=== PATIENT | male | born 1950 | race Caucasian/White ===

== ENCOUNTER 2021-03-30 12:00 | Outpatient (CLI) | payer MEDICARE, MEDICAID ==
[~2021-03-30 12:00] MED LIST: ATOR10TA PO; CARV3.12 PO; CARV3.122 PO; CLOP75TA15 PO; ESCI10TA PO; LISI-768 PO; METO2.5T2 PO; METO25TA4 PO; NITR12SP6 TL; PANT40TA2 PO; SEVE800T8 PO; SUB--70 MC; ZOLP5TAB8 PO
== END 2021-03-30 23:59 | disposition home or self-care (01) ==
LOC: MSC 12:00
PROVIDERS: ATTEND Internal Medicine
DX: E11.65 Type 2 diabetes mellitus with hyperglycemia (principal); E11.40 Type 2 diabetes mellitus with diabetic neuropathy, unspecified; Z79.4 Long term (current) use of insulin; Z94.0 Kidney transplant status; Z94.1 Heart transplant status; I10 Essential (primary) hypertension; E78.5 Hyperlipidemia, unspecified; G47.00 Insomnia, unspecified; I25.10 Atherosclerotic heart disease of native coronary artery without angina pectoris; I73.9 Peripheral vascular disease, unspecified; Z79.01 Long term (current) use of anticoagulants; Z79.52 Long term (current) use of systemic steroids; Z79.899 Other long term (current) drug therapy; Z87.891 Personal history of nicotine dependence

== ENCOUNTER 2025-09-21 23:22 | Inpatient (IN) | payer MEDICARE, OTHER ==
[~2025-09-21] VITALS: Ht 172.7 cm; Wt 94.1 kg
[2025-09-22] MEDS ORDERED: ACETAMINOPHEN 650 MG/SUPP.RECT RC ONE (00:35)
[2025-09-22] MEDS: IV NS 0.9% 500 ML BAG IV ONE ×3 (00:35→03:00)
[2025-09-22] MEDS ORDERED: PIPERACI/TAZO 3.375GM/D5W 50ML PB IV ONE (00:35)
[2025-09-22] MEDS ORDERED: VANCOMYCIN 1 GM /D5W 250 ML PB IV ONE (00:35)
[2025-09-22] MEDS: PIPERACILLIN /TAZOBACTAM 3.375 G in IV D5W 50 ML IV ONE (00:36)
[2025-09-22] MEDS: ACETAMINOPHEN 650 MG/SUPP.RECT RC ONE (00:36)
[2025-09-22 00:48] LABS: PLATELET COUNT (AUTO) 245 K/uL (150-450); RED BLOOD CELL COUNT(AUTO) 5.68 MIL/uL (4.5-6.0); RED CELL DISTRIBUTION WIDTH 16.0 % (11.5-15.0); WHITE BLOOD COUNT (AUTO) 14.8 K/uL (4.3-11.0)
[2025-09-22 00:57] LABS: CALCIUM, SERUM 9.4 mg/dL (8.5-10.1); CREATININE 2.3 mg/dL (0.6-1.3); SODIUM SERUM 136 mmol/L (136-145); UREA NITROGEN, BLOOD 62 mg/dL (7-18)
--- NOTE | 2025-09-22 00:57 | NUR ---
URINE SAMPLE SENT TO LAB
--- NOTE | 2025-09-22 00:57 | NUR ---
COVID & FLU SWABS SENT TO LAB
[2025-09-22 01:04] LABS: INR 1.09 (0.91-1.10)
[2025-09-22 01:09] LABS: LACTIC ACID 2.0 mmol/L (0.4-2.0)
[2025-09-22] MEDS: VANCOMYCIN 1 GM in IV D5W 250 ML IV ONE (01:12)
[2025-09-22 01:18] LABS: ASPARTATE AMINOTRANSFERASE 13 U/L (15-37); TOTAL PROTEIN, SERUM 7.9 g/dL (6.4-8.2)
--- NOTE | 2025-09-22 01:18 | NUR ---
pt taken to ct
--- NOTE | 2025-09-22 01:30 | NUR ---
pt back from ct
[2025-09-22 01:37] LABS: APPEARANCE,URINE CLOUDY (CLEAR); BLOOD, URINE 1+ Ery/uL (NEGATIVE); LEUKOCYTE ESTERASE ,URINE 3+ (NEGATIVE); NITRITE, URINE NEGATIVE (NEGATIVE); UGLUCOSE NEGATIVE (NEGATIVE)
[2025-09-22 01:50] LABS: ADD URINE CULTURE YES; SQUAMOUS EPITHELIAL CELL,UR 0-2 /HPF (None Seen)
[2025-09-22] MEDS ORDERED: ENOXAPARIN SODIUM 40 MG/0.4 ML DISP.SYRIN SQ SCH (04:00)
[2025-09-22] MEDS ORDERED: ACETAMINOPHEN 325 MG TABLET PO PRN (04:00)
[2025-09-22] MEDS ORDERED: ACETAMINOPHEN 650 MG/SUPP.RECT RC PRN (04:00)
[2025-09-22] MEDS ORDERED: MAGNESIUM HYDROXIDE 30 ML UDC PO PRN (04:00)
[2025-09-22] MEDS ORDERED: DOSING PER PHARMACY-ZOSYN IV 1 EA EA XX PRN (04:00)
[2025-09-22] MEDS ORDERED: DOSING PER PHARMACY-VANCOMYCIN IV XX PRN (04:00)
[2025-09-22] MEDS ORDERED: MAG HYDROX/AL HYDROX/SIMETH 30 ML UDC PO PRN (04:00)
[2025-09-22 06:39] LABS: PLATELET COUNT (AUTO) 177 K/uL (150-450); RED BLOOD CELL COUNT(AUTO) 5.51 MIL/uL (4.5-6.0); RED CELL DISTRIBUTION WIDTH 16.4 % (11.5-15.0); WHITE BLOOD COUNT (AUTO) 11.9 K/uL (4.3-11.0)
[2025-09-22 07:03] LABS: ASPARTATE AMINOTRANSFERASE 13.0 U/L (15-37); CALCIUM, SERUM 9.4 mg/dL (8.5-10.1); CREATININE 2.0 mg/dL (0.6-1.3); PHOSPHORUS 3.5 mg/dL (2.5-4.9); SODIUM SERUM 138.0 mmol/L (136-145); TOTAL PROTEIN, SERUM 7.4 g/dL (6.4-8.2); UREA NITROGEN, BLOOD 57.0 mg/dL (7-18)
--- NOTE | 2025-09-22 07:07 | NUR ---
mrsa swab collected and sent to lab
--- NOTE | 2025-09-22 07:15 | NUR ---
RECEIVED PATIENT ON BED , CONNECTED TO CARDIAC, PULSE OX AND N/C 5L/MIN O2. AWAKE ALERT CONFUSED AND RESTING COMFORTABLY. NO SIGNS AND SYMPTOMS OF DISTRESS. FOLLEY CATHETER NOTED.
--- NOTE | 2025-09-22 07:30 | NUR ---
[id number], ER ADMITTING AWARE
--- NOTE | 2025-09-22 07:30 | NUR ---
Patricia newby in ED - 09/22/25 at 0730 by NMOLMITRA [id number], ER admitting aware
--- NOTE | 2025-09-22 07:42 | NUR ---
REPORT GIVEN TO LESTER BARAJAS
--- NOTE | 2025-09-22 08:16 | NUR ---
MOVED TO INPATIENT ROOM SAFELY PER ACLS PROTOCOL
--- NOTE | 2025-09-22 08:37 | NUR ---
BILLET ASSEMBLER NOTES ADMITTED PATIENT TO UNIT IN STABLE CONDITION.PT IS A/O X 2, WITH O2 INHALATION AT 5LPM VIA NC,SATURATING AT 95%.NO SIGNS OR SYMPTOMS OF RESPIRATORY DISTRESS NOTED.PATIENT ORIENTED TO ROOM, STAFF AND CALL LIGHT.ON INVENTORY CONTROLLER WITH READING OF SINUS TACHYCARDIA 110.WITH IV ACCESS AT RIGHT HAND G#20 INTACT,PATENT WITH INFUSING NS AT 50ML/HR.SKIN ASSESSMENT DONE, WITH SCABS AT LEFT LEG.NO EDEMA PRESENT,BOWEL SOUNDS ACTIVE.BELONGINGS ACCOUNTED BY GINA CUMMINGS.SAFETY MEASURES IN PLACED; BED IN LOWEST AND LOCKED POSITION, SIDE RAILS UP X3.CALL LIGHT AND TRAY TABLE WITHIN EASY REACH.PLAN OF CARE ONGOING.
[2025-09-22] MEDS: VANCOMYCIN 750 MG in IV D5W 250 ML IV ONE (08:49)
[2025-09-22] MEDS: IV NS 0.9% 1,000 ML IV PRN (08:50)
[2025-09-22] MEDS: PANTOPRAZOLE 40 MG VIAL IV SCH (09:17)
[2025-09-22] MEDS: ENOXAPARIN SODIUM 30 MG/0.3 ML DISP.SYRIN SQ SCH (09:19)
[2025-09-22] MEDS: ZOSYN IVPB 2.25 G in IV D5W 50ml IV SCH (09:54)
[2025-09-22] MEDS ORDERED: GABA300C PO (15:38)
[2025-09-22] MEDS ORDERED: QUET25TA PO (15:38)
[2025-09-22] MEDS ORDERED: FOLI0.8T43 PO (15:38)
[2025-09-22] MEDS ORDERED: IPRA12.9 INH (15:38)
[2025-09-22] MEDS ORDERED: INSU100V39 SQ (15:38)
[2025-09-22] MEDS ORDERED: TRAZ-182 PO (15:38)
[2025-09-22] MEDS ORDERED: PRAV20TA4 PO (15:38)
[2025-09-22] MEDS ORDERED: ASPI-1169 PO (15:38)
[2025-09-22] MEDS ORDERED: PANT40TA49 PO (15:38)
[2025-09-22] MEDS ORDERED: MAGN400T8 PO (15:38)
[2025-09-22] MEDS ORDERED: MECL-159 PO (15:38)
[2025-09-22] MEDS ORDERED: MIRABEGRON PO (15:38)
[2025-09-22] MEDS ORDERED: INSU300I SQ (15:38)
[2025-09-22] MEDS ORDERED: CYAN10006 IM (15:38)
[2025-09-22] MEDS ORDERED: NATE120T6 PO (15:38)
[2025-09-22] MEDS ORDERED: MECL-182 PO (15:38)
[2025-09-22] MEDS ORDERED: TACR1CAP2 PO (15:38)
[2025-09-22] MEDS ORDERED: ICOS1CAP PO (15:38)
[2025-09-22] MEDS ORDERED: PRED5TAB48 PO (15:38)
[2025-09-22] MEDS ORDERED: TAMS-12 PO (15:38)
[2025-09-22] MEDS ORDERED: ASCO500T21 PO (15:38)
[2025-09-22] MEDS ORDERED: FURO-144 PO (15:38)
[2025-09-22] MEDS ORDERED: VITA-354 PO (15:38)
[2025-09-22] MEDS ORDERED: PHEN-894 PO (15:38)
[2025-09-22] MEDS ORDERED: LINA5TAB PO (15:38)
[2025-09-22] MEDS ORDERED: AMYL1CAP58 PO (15:38)
[2025-09-22] MEDS ORDERED: VALS160T2 PO (15:38)
[2025-09-22] MEDS ORDERED: SENN8.6T19 PO (15:38)
[2025-09-22] MEDS ORDERED: DOCU100C36 PO (15:38)
[2025-09-22] MEDS ORDERED: THIA100T88 PO (15:38)
[2025-09-22] MEDS ORDERED: LIDO1ADH82 TP (15:38)
[2025-09-22] MEDS ORDERED: MYCO250C PO (15:38)
[2025-09-22] MEDS ORDERED: CALC-1276 PO (15:38)
[2025-09-22] MEDS ORDERED: ACET325T53 PO (15:38)
[2025-09-22] MEDS ORDERED: AMLO-212 PO (15:38)
[2025-09-22] MEDS ORDERED: TROS20TA3 PO (15:38)
--- NOTE | 2025-09-22 15:38 | NUR ---
MED RECON NOTES Alla (son) brought medications list and called Glendy (daughter) to confirm if the list are the mediations that he is taking currently and she stated yes. Medication reconciliation updated and Dr. Martines made aware.
[2025-09-22] MEDS ORDERED: SENNOSIDES 8.6 MG TABLET PO PRN (16:00)
[2025-09-22] MEDS ORDERED: LIDOCAINE 4% PF AMPUL 40 MG/ML AMPUL TP SCH (16:00)
[2025-09-22] MEDS ORDERED: AMLODIPINE BESYLATE 5 MG TABLET PO SCH (16:00)
[2025-09-22] MEDS: ASCORBIC ACID 500 MG TABLET PO SCH (16:36)
[2025-09-22] MEDS: MYCOPHENOLATE MOFETIL 250 MG CAPSULE PO SCH (16:36)
[2025-09-22] MEDS: GABAPENTIN 300 MG CAPSULE PO SCH (16:37)
[2025-09-22] MEDS: DOCUSATE SODIUM 100 MG CAPSULE PO SCH (16:37)
--- NOTE | 2025-09-22 18:10 | NUR ---
RN NOTES BP OF 145/90 NOTED AT THIS TIME
--- NOTE | 2025-09-22 18:48 | NUR ---
RN CLOSING NOTES PATIENT RESTING IN BED.PT IS A/O X 2, WITH O2 INHALATION AT 5LPM VIA NC,SATURATING AT 95%.NO SIGNS OR SYMPTOMS OF RESPIRATORY DISTRESS NOTED.ON MANAGER PROCESS EXCELLENCE WITH READING OF SINUS TACHYCARDIA 105.WITH IV ACCESS AT RIGHT HAND G#20 INTACT,PATENT WITH INFUSING NS AT 50ML/HR.SAFETY MEASURES IN PLACED; BED IN LOWEST AND LOCKED POSITION, SIDE RAILS UP X3.CALL LIGHT AND TRAY TABLE WITHIN EASY REACH.PLAN OF CARE ONGOING.
--- NOTE | 2025-09-22 19:45 | NUR ---
DIRECTOR OF ONCOLOGY OPENING NOTES PATIENT AWAKE, RESTING COMFORTABLY ON BED AND ON SEMI FOWLERS POSITION. ALERT BUT DISORIENTED. UNABLE TO CORRECTLY ANSWER HIS NAME,PLACE, TIME AND PURPOSE. ON OXYGEN AT 4 LPM SATURATING WELL WITH SPO2 OF 99% AND WITH EVEN AND NONLABORED BREATHING. NOTED TO BE A MOUTH BREATHER. NO CARDIAC OR RESPIRATORY DISTRESS NOTED AT THIS TIME. NO NONVERBAL OR VERBAL CUES OF PAIN NOTED. ON CONTINUOUS TELEMETRY MONITORING WITH CURRENT READING OF SINUS TACHYCARDIA AT 121 BPM. WITH IV ACCESS ON HIS LEFT HAND GAUGE # 20 PATENT, INTACT AND INFUSING NS AT 50 ML/HR WELL. ON BED REST. WITH MYERS CATHETER DRAINING URINE VIA GRAVITY AND URINE BAG PLACED BELOW THE BLADDER. ALL FALL AND SAFETY MEASURES IMPLEMENTED: BED IN LOWEST AND LOCKED POSITION, BED ALARM ON, SIDE RAILS X 3, CALL LIGHT AND TABLE PLACED WITHIN PATIENT'S REACH. NO FURTHER NEEDS NOTED AT THIS TIME.
[2025-09-22 20:00] VITALS: BP 130/76; TEMP 97.9; O2SAT 99
[2025-09-22] MEDS: TACROLIMUS ANHYDROUS 0.5 MG CAPSULE PO SCH (20:58)
[2025-09-22] MEDS: PANTOPRAZOLE 40 MG TABLET.DR PO SCH (21:26)
[2025-09-22] MEDS: TAMSULOSIN 0.4 MG CAP.SR.24H PO SCH (21:27)
[2025-09-22] MEDS: TRAZODONE 50 MG TABLET PO SCH (21:27)
[2025-09-22] MEDS: ATORVASTATIN 10 MG TABLET PO SCH (21:27)
[2025-09-22] MEDS: QUETIAPINE FUMARATE 25 MG TABLET PO SCH (21:27)
[2025-09-22] MEDS: INSULIN GLARGINE, 100 UNIT/ML CARTRIDGE SQ SCH (22:02)
[2025-09-23] VITALS (7 sets, daily range): BP systolic 111–131; BP diastolic 60–79; TEMP 97.3–99; O2SAT 93–98
[2025-09-23 06:02] LABS: PLATELET COUNT (AUTO) 233 K/uL (150-450); RED BLOOD CELL COUNT(AUTO) 5.21 MIL/uL (4.5-6.0); RED CELL DISTRIBUTION WIDTH 16.5 % (11.5-15.0); WHITE BLOOD COUNT (AUTO) 10.6 K/uL (4.3-11.0)
[2025-09-23 06:21] LABS: ASPARTATE AMINOTRANSFERASE 6 U/L (15-37); CALCIUM, SERUM 8.8 mg/dL (8.5-10.1); CREATININE 1.7 mg/dL (0.6-1.3); PHOSPHORUS 3.0 mg/dL (2.5-4.9); SODIUM SERUM 139 mmol/L (136-145); TOTAL PROTEIN, SERUM 6.8 g/dL (6.4-8.2); UREA NITROGEN, BLOOD 47 mg/dL (7-18)
[2025-09-23 06:25] LABS: CREATINE KINASE, TOTAL 42 U/L (39-308)
--- NOTE | 2025-09-23 06:53 | NUR ---
SCHOOL BUS AIDE CLOSING NOTES PATIENT ASLEEP BUT EASILY AWAKENED, RESTING COMFORTABLY ON BED AND ON SEMI FOWLERS POSITION. STILL ALERT BUT DISORIENTED. STILL ON OXYGEN AT 3 LPM SATURATING WELL WITH SPO2 OF 94% AND WITH EVEN AND NONLABORED BREATHING. NO CARDIAC OR RESPIRATORY DISTRESS NOTED WITHIN THE SHIFT. NO NONVERBAL OR VERBAL CUES OF PAIN NOTED. STILL ON CONTINUOUS TELEMETRY MONITORING WITH CURRENT READING OF SINUS TACHYCARDIA AT 112 BPM. STILL WITH IV ACCESS ON HIS LEFT HAND GAUGE # 20 PATENT, INTACT AND INFUSING NS AT 50 ML/HR WELL. ON BED REST. WITH MYERS CATHETER DRAINING CLOUDY AND YELLOW URINE. URINE BAG EMPTIED AND RECORDED. KEPT SAFE AND COMFORTABLE. ALL NURSING NEEDS AND CONCERNS ATTENDED. ALL FALL AND SAFETY MEASURES MAINTAINED: BED STILL IN LOWEST AND LOCKED POSITION, BED ALARM ON, SIDE RAILS X 3, CALL LIGHT AND TABLE PLACED WITHIN PATIENT'S REACH. WILL ENDORSE TO MORNING SHIFT RN FOR CONTINUITY OF CARE.
[2025-09-23] MEDS: LIDOCAINE 5% (PATCH) 1 EA PATCH TP SCH (08:46)
[2025-09-23] MEDS: FUROSEMIDE 40 MG TABLET PO SCH (08:46)
[2025-09-23] MEDS: THIAMINE HCL 100 MG TABLET PO SCH (08:46)
[2025-09-23] MEDS: ASPIRIN 81 MG TAB.CHEW PO SCH (08:47)
[2025-09-23] MEDS: LINAGLIPTIN 5 MG TABLET PO SCH (08:47)
[2025-09-23] MEDS: MECLIZINE HCL 25 MG TABLET PO SCH (08:47)
[2025-09-23] MEDS ORDERED: VALSARTAN 40 MG TABLET PO SCH (09:00)
[2025-09-23] MEDS: VANCOMYCIN 750 MG in IV D5W 250 ML IV SCH (10:03)
--- NOTE | 2025-09-23 12:05 | NUR ---
BROADCAST OPERATIONS DIRECTOR OPENING NOTE : RECEIVED PT IN BED IN SEMI-FOWLERS POSITION. ON 4 LITER OXYGEN VIA NC, BREATHING EVEN AND UNLABORED, NO INDICATION OF ACUTE RESPIRATORY DISTRESS NOTED. CONTINUE ON TELE MONITORING SR 100 BPM. PT IS AOX0, UNABLE TO COMPREHEND AND VERBALIZED NEEDS. IV SITE ON L HAND @20G, RUNNING NS 50CC/HR, LINE IS PATENT AND FLUSH WELL VOIDING VIA MYERS. COLOR IS ORANGE AND CLOUDY. BB AND UNABLE TO MOVE AND AMBULATE, AND NEEDS TOTAL ASSIST. ALL FALL AND SAFETY PRECAUTION IN PLACE.
[2025-09-23] MEDS ORDERED: DEXTROSE 50%-WATER 50 ML DISP.SYRIN IV PRN (19:00)
--- NOTE | 2025-09-23 19:24 | NUR ---
MANAGER BRIDGE CLOSING NOTE : PT IN BED IN . ON 4 LITER OXYGEN VIA NC, BREATHING EVEN AND UNLABORED, NO INDICATION OF ACUTE RESPIRATORY DISTRESS NOTED. CONTINUE ON TELE MONITORING SR 98 BPM. RECEIVED ALL DUE MEDS. PT IS AOX1, UNABLE TO COMPREHEND AND VERBALIZED NEEDS. IV SITE ON L HAND @20G, RUNNING NS 50CC/HR, LINE IS PATENT AND FLUSH WELL VOIDING VIA MYERS WITH 500 CC OUTPUT. NO BM. BB AND UNABLE TO MOVE AND AMBULATE, AND NEEDS TOTAL ASSIST. XR ON LEFT SHOULDER WITH NEGATIVE RESULT. ALL FALL AND SAFETY PRECAUTION IN PLACE.
--- NOTE | 2025-09-23 19:26 | NUR ---
MS RN CLOSING NOTE : PT IN BED IN . ON RA, BREATHING EVEN AND UNLABORED, NO INDICATION OF ACUTE RESPIRATORY DISTRESS NOTED. . PT IS AOX0, UNABLE TO COMPREHEND AND VERBALIZED NEEDS. IN CONTACT ISOLATION DUE TO LICE . IV SITE ON RAC @22G, RUNNING NS 75CC/HR, LINE IS PATENT AND FLUSH WELL VOIDING VIA MYERS WITH 500 CC OUTPUT. NO BM. BB AND UNABLE TO MOVE AND AMBULATE, AND NEEDS TOTAL ASSIST. ALL FALL AND SAFETY PRECAUTION IN PLACE.
--- NOTE | 2025-09-23 19:42 | NUR ---
FINAL COAT SPRAYER OPENING NOTES PATIENT AWAKE, RESTING COMFORTABLY ON BED AND ON SEMI FOWLERS POSITION. ALERT AND ORIENTED X 3, ABLE TO MAKE NEEDS KNOWN, [place] SPEAKER AND ABLE TO UNDERSTAND SOME ROMANIAN. MORE ORIENTED THAN LAST NIGHT. ON OXYGEN AT 3 LPM SATURATING WELL WITH SPO2 OF 98% AND WITH EVEN AND NONLABORED BREATHING. NO CARDIAC OR RESPIRATORY DISTRESS NOTED AT THIS TIME. NO NONVERBAL OR VERBAL CUES OF PAIN NOTED. ON CONTINUOUS TELEMETRY MONITORING WITH CURRENT READING OF SINUS RHYTHM AT 98 BPM. WITH IV ACCESS ON HIS LEFT HAND GAUGE # 20 PATENT, INTACT AND INFUSING NS AT 50 ML/HR WELL. ON BED REST. WITH MYERS CATHETER DRAINING URINE VIA GRAVITY AND URINE BAG PLACED BELOW THE BLADDER. ALL FALL AND SAFETY MEASURES IMPLEMENTED: BED IN LOWEST AND LOCKED POSITION, BED ALARM ON, SIDE RAILS X 3, CALL LIGHT AND TABLE PLACED WITHIN PATIENT'S REACH. NO FURTHER NEEDS NOTED AT THIS TIME.
[2025-09-23] MEDS: BLOOD SUGAR DIAGNOSTIC 1 EACH STRIP VI SCH (20:05)
[2025-09-23] MEDS: INSULIN REGULAR, HUMAN 100 UNIT/ML 3 ML VIAL SQ PRN (20:08)
--- NOTE | 2025-09-23 21:00 | NUR ---
BROOMCORN PRESS FEEDER NOTES TURNED AND REPOSITIONED PATIENT WITH HELP OF GINA ROBLES. INCIDENTALLY FOUND REDNESS ON PATIENT'S BILATERAL HEELS, BACK, BUTTOCKS AND SACRUM. PHOTO OF SKIN ISSUES TAKEN AND PLACED IN THE CHART. APPLIED OPTIFOAM ON PATIENT'S HEELS AND SACRAL AREA. CHARGE NURSE MADE AWARE.
--- NOTE | 2025-09-23 22:00 | NUR ---
MUSICAL STRING MAKER NOTES UPON ROUNDS, NOTICED PATIENT'S IV ACCESS TO BE INFILTRATED. STOPPED IVF AND REMOVED IV CANNULA. TRIED IV INSERTION TWICE BUT FAILED. ASKED MARINE DIVER FOR HELP WITH IV INSERTION.
[2025-09-23] MEDS: *INSULIN REGULAR(HUMULIN R)HUM 100 UNIT/ML VIAL SQ PRN (22:20)
--- NOTE | 2025-09-23 23:00 | NUR ---
BELL CLERK NOTES DECREASE OXYGEN FROM 3 LPM TO 2 LPM WITH SPO2 AT 98-99%.
[2025-09-24] VITALS (8 sets, daily range): BP systolic 100–133; BP diastolic 49–84; TEMP 97.3–98.2; O2SAT 96–100
--- NOTE | 2025-09-24 00:54 | NUR ---
FINE ARTS CHAIR NOTES CERTIFIED PERFORMANCE TECHNOLOGIST NEPTALI WAS ABLE TO SUCCESSFULLY INSERT IV CATHETER 22 GAUGE ON PATIENT'S LEFT FOOT. PATIENT HARD STICK AND MIDLINE INSERTION ORDERED. INFORMED CHARGE NURSE AND NURSING IMAGER CONRADO REGARDING MIDLINE INSERTION FOR PATIENT.
--- NOTE | 2025-09-24 05:49 | NUR ---
HAND BINDER CUTTER NOTES CLEANED PATIENT WITH HELP OF GINA ROBLES. BED LINENS CHANGED AND REPOSITIONED PATIENT ON BED. URINE BAG EMPTIED AND RECORDED.
[2025-09-24 07:08] LABS: PTH, INTACT 16 pg/mL (15-65)
--- NOTE | 2025-09-24 07:11 | NUR ---
WOUND CARE CONSULT: PT HAVING PROCEDURE. ADMISSION PHOTO INDICATES SACRAL DEEP TISSUE INJURY. DISCUSSED SKIN PROTECTION WITH NURSING STAFF. MD IN AGREEMENT WITH PLAN OF CARE.
--- NOTE | 2025-09-24 07:29 | NUR ---
DIESEL MECHANIC FARM CLOSING NOTES PATIENT ASLEEP BUT EASILY AWAKENED, RESTING COMFORTABLY ON BED AND ON SEMI FOWLERS POSITION. STILL ALERT AND ORIENTED X 2-3 AND WITH EPISODES OF CONFUSION. STILL ON OXYGEN AT 2 LPM SATURATING WELL WITH SPO2 OF 98% AND WITH EVEN AND NONLABORED BREATHING. NO CARDIAC OR RESPIRATORY DISTRESS NOTED WITHIN THE SHIFT. NO NONVERBAL OR VERBAL CUES OF PAIN NOTED. STILL ON CONTINUOUS TELEMETRY MONITORING WITH CURRENT READING OF SINUS RHYTHM WITH OCCASIONAL PVC'S WITH HEART RATE AT 99 BPM. STILL WITH IV ACCESS ON HIS LEFT FOOT GAUGE # 22 PATENT, INTACT AND FLUSHING WELL. ON BED REST. WITH MYERS CATHETER DRAINING CLOUDY AND YELLOW URINE. URINE BAG EMPTIED AND RECORDED. KEPT SAFE AND COMFORTABLE. ALL NURSING NEEDS AND CONCERNS ATTENDED. IV CANNULA 20 GAUGE SUCCESSFULLY INSERTED BY VASCULAR NURSE DONYA ON HIS LEFT FOREARM. ALL FALL AND SAFETY MEASURES MAINTAINED: BED STILL IN LOWEST AND LOCKED POSITION, BED ALARM ON, SIDE RAILS X 3, CALL LIGHT AND TABLE PLACED WITHIN PATIENT'S REACH. REPORT GIVEN TO KARL MONTIEL FOR CONTINUITY OF CARE. INFORMED KARL MONTIEL THAT SHE NEEDS TO REMOVE THE IV CANNULA ON PATIENT'S LEFT FOOT SINCE PATIENT ALREADY HAVE IV ACCESS ON HIS LEFT FOREARM.
--- NOTE | 2025-09-24 07:50 | NUR ---
RN OPENING NOTES RECEIVED PATIENT AWAKE IN BED. ON 2L O2 VIA NC. IV ACCESS ON LFA #20G WITH IVF OF NS @ 50 ML/HR. SAFETY MEASURES IN PLACE. WILL CONTINUE TO MONITOR.
[2025-09-24 08:01] LABS: CALCIUM, SERUM 8.8 mg/dL (8.5-10.1); CREATININE 1.6 mg/dL (0.6-1.3); SODIUM SERUM 141.0 mmol/L (136-145); UREA NITROGEN, BLOOD 38.0 mg/dL (7-18)
[2025-09-24] MEDS: POTASSIUM CHLORIDE 20 MEQ TAB.PRT.SR PO ONE (09:41)
--- NOTE | 2025-09-24 18:48 | NUR ---
RN CLOSING NOTES PATIENT RESTING IN BED, WITH FAMILY ON BEDSIDE. ON 2L O2 VIA NASAL CANNULA SATURATING WELL. IV ACCESS ON LFA #20G WITH IVF OF NS @ 50 ML/HR. ALL DUE MEDS GIVEN AND NEEDS ATTENDED TO. SAFETY MEASURES MAINTAINED AT ALL TIMES. WILL ENDORSE PLAN OF CARE TO INCOMING RN.
--- NOTE | 2025-09-24 19:30 | NUR ---
RN OPENING NOTES RECEIVED PT IN BED, AWAKE, A/O X 2 ABLE TO MAKE NEEDS KNOWN, REORIENTATION GIVEN. PT N 2L O2 VIA NC, RESPIRATIONS EVEN AND UNLABORED. IV ACCESS AT LFA 20G, INFUSING WELL WITH NS @ 50ML/HR. ON MYERS TO GRAVITY, NOTED CLEAR YELLOW URINE OUTPUT. PT DENIES PAIN OR ANY DISTRESS AT THIS TIME. SAFETY PRECAUTIONS I PLACE: BED AT LOWEST AND LOCKED POSITION, SIDE RAILS UP X3, BED ALARM ON, CALL LIGHT BUTTON AND TABLE WITHIN REACH. PLAN OF CARE ONGOING
--- NOTE | 2025-09-25 07:09 | NUR ---
RN CLOSING NOTES PT IN BED , AWAKE, A/OX3 ABLE TO AMKE NEEDS KNOWN. REMAINED STABLE ON 2L O2 VIA NC, RESPIRATIONS EVEN AND UNLAORED. IV ACCESS INFUSING WELL WITH NS 50 ML/HR. ON MYERS WITH 80 Addendum: 09/25/25 at 0710 by EDYTA CRUZ RN DISREGARD NOTE - INCOMPLETE
--- NOTE | 2025-09-25 07:10 | NUR ---
RN CLOSING NOTES PT IN BED , AWAKE, A/OX3 ABLE TO MAKE NEEDS KNOWN. REMAINED STABLE ON 2L O2 VIA NC, RESPIRATIONS EVEN AND UNLABORED. IV ACCESS INFUSING WELL WITH NS 50 ML/HR. ON MYERS WITH 800 ML TOTAL URINE OUTPUT. ALL DUE MEDS GIVEN, ALL NEEDS ATTENDED.BLOOD SUGAR MONITORED AND MANAGED. KEPT PT CLEAN AND DRY. SAFETY PRECAUTIONS MAINTAINED. PT REMAINED STABLE THROUGHOUT SHIFT. ENDORSED TO AM NURSE FOR TREV
--- NOTE | 2025-09-25 07:30 | NUR ---
OPENING NOTES RECEIVED PATIENT IN BED, AWAKE, A/O X 2 ABLE TO MAKE NEEDS KNOWN. ON O2 AT 2 LPM VIA NC, RESPIRATIONS EVEN AND UNLABORED. IV ACCESS AT LFA 20G WITH NS @ 50ML/HR. ON MYERS DRAINING VIA GRAVITY, SAFETY PRECAUTIONS IN PLACE: BED AT LOWEST AND LOCKED POSITION, SIDE RAILS UP X3, BED ALARM ON, CALL LIGHT BUTTON AND TABLE WITHIN REACH. PLAN OF CARE ONGOING
[2025-09-25 07:37] LABS: PLATELET COUNT (AUTO) 213 K/uL (150-450); RED BLOOD CELL COUNT(AUTO) 4.35 MIL/uL (4.5-6.0); RED CELL DISTRIBUTION WIDTH 16.0 % (11.5-15.0); WHITE BLOOD COUNT (AUTO) 8.6 K/uL (4.3-11.0)
[2025-09-25 08:00] VITALS: BP 130/75; TEMP 97.2; O2SAT 100
[2025-09-25 08:14] LABS: CALCIUM, SERUM 8.3 mg/dL (8.5-10.1); CREATININE 1.2 mg/dL (0.6-1.3); SODIUM SERUM 138.0 mmol/L (136-145); UREA NITROGEN, BLOOD 28.0 mg/dL (7-18)
[2025-09-25 08:15] LABS: PHOSPHORUS 2.3 mg/dL (2.5-4.9)
--- NOTE | 2025-09-25 09:00 | NUR ---
RN NOTE PATIENT ONLY TOOK PROGRAF, DOCUSATE, LOVENOX, ZOSYN AND REFUSED ALL OTHER MEDICATION. EDUCATE PATIENT OF THE IMPORTANCE OF THE MEDICATION. DR ROMERO MADE ROUNDS, INFORMED IMPORTANCE OF MEDICATION, PATIENT VERBALIZED UNDERSTANDING. WHEN MD LEFT, PATIENT REFUSED MEDICINE VERBALIZING "HE ONLY TAKES PROGRAFT". CALLED POLO (DAUGHTER IN LAW) VIA [phone], INFORMED THAT PATIENT REFUSED IMMUNOSUPPRESANTS AND EDUCATE POLO OF THE THE INDICATION FOR MEDICATION. DAUGHTER IN LAW TALKED TO PATIENT AFTER THE CALL, PATIENT VERBALIZED "NO". WASTED OPENED ASPIRIN, LIDODERM PATCH AND OPENED CELLCEPT IN THE RX DESTROYER. RETURNED ALL OTHER MEDICATION IN THE OMNICELL. PLAN OF CARE ONGOING
[2025-09-25] MEDS: POTASSIUM CHLORIDE 20 MEQ TAB.PRT.SR PO SCH (10:00)
[2025-09-25] MEDS: POTASSIUM CHLORIDE 20 MEQ POWDER PACKET PO SCH (12:04)
[2025-09-25] MEDS ORDERED: AMOX1TAB16 PO (12:06)
[2025-09-25] MEDS: AMOX/CLAVULANATE 875 MG TABLET PO SCH (12:31)
[2025-09-25] MEDS: K PHOS NEUTRAL 250 MG TABLET PO ONE (15:54)
[2025-09-25] MEDS: ONDANSETRON HCL/PF 4 MG/2 ML VIAL IVP PRN (15:54)
[2025-09-25 16:00] VITALS: BP 166/89; TEMP 97.3; O2SAT 100
--- NOTE | 2025-09-25 16:01 | NUR ---
RN NOTE PATIENT HAD 1 EPISODE OF VOMITING, PRN ZOFRAN ADMINISTERED ORDERED. PATIENT REFUSED K DEVAUGHN VERBALIZING "NO TABLET". EDUCATE ABOUT IMPORTANCE OF MEDICATION BUT PATIENT STILL REFUSED. RETURNED MEDICATION IN THE OMNICELL
--- NOTE | 2025-09-25 17:13 | NUR ---
RN NOTE PATIENT HAD A ANOTHER EPISODE OF VOMITING. INFORM DR VELASCO, BETTY WAS GIVEN 1600. ORDERED REGLAN 10 MG IV BID. ORDER NOTED AND CARRIED OUT
[2025-09-25] MEDS: METOCLOPRAMIDE HCL 10 MG/2 ML VIAL IV SCH (17:19)
--- NOTE | 2025-09-25 17:30 | NUR ---
RN NOTE PATIENT WITH FAMILY AT BEDSIDE REFUSED GABAPENTIN AND VITAMIN C. FAMILY SAID TO SKIP FOR TODAY SINCE PATIENT REFUSES IT. WASTED MEDICATION IN THE RX DESTROYER
--- NOTE | 2025-09-25 18:00 | NUR ---
RN NOTE PATIENT REFUSED TO EAT DINNER VERBALIZING HE WILL SLEEP. BLOOD SUGAR CHECK IS 142 MG/DL SO HE REFUSED INSULIN ADMINISTRATION. PLAN OF CARE ONGOING
[2025-09-25 18:30] VITALS: BP 160/65; O2SAT 95
--- NOTE | 2025-09-25 19:00 | NUR ---
CLOSING NOTES PATIENT IN BED, AWAKE, A/O X 2 ABLE TO MAKE NEEDS KNOWN. ON O2 AT 2 LPM VIA NC, RESPIRATIONS EVEN AND UNLABORED. IV ACCESS AT LEFT FA 20G WITH NS @ 50ML/HR. ON MYERS DRAINING VIA GRAVITY, OUTPUT RECORDED. TURN TO SIDES Q2H PER PROTOCOL. SAFETY PRECAUTIONS IN PLACE: BED AT LOWEST AND LOCKED POSITION, SIDE RAILS UP X3, BED ALARM ON, CALL LIGHT BUTTON AND TABLE WITHIN REACH. PLAN OF CARE ENDORSED TO SCREEN MAKING SUPERVISOR NURSE
--- NOTE | 2025-09-25 19:45 | NUR ---
RN NOTES RECEIVED PATIENT RESTING ON BED, EASILY AWAKEN. A/O X 2, ABLE TO MAKE NEEDS KNOWN, ON ROOM AIR, RESPIRATIONS EVEN AND UNLABORED. NO SOB OR S/SX OF DISTRESS NOTED. WITH PATENT IV ACCESS AT LFA G20, INFUSING WELL WITH NS AT 50ML/HR. WITH MYERS CATHETER ATTACHED VIA GRAVITY. NO COMPLAINTS OF PAIN OR ANY DISTRESS AT THIS TIME. FALL AND SAFETY PRECAUTIONS PROVIDED: BED AT LOWEST AND LOCKED POSITION, SIDE RAILS UP X 3, BED ALARM ON, CALL LIGHT BUTTON AND TABLE WITHIN REACH. PLAN OF CARE ONGOING
[2025-09-25 21:17] VITALS: BP 152/82; TEMP 99; O2SAT 99
--- NOTE | 2025-09-26 06:51 | NUR ---
RN CLOSING NOTES PATIENT ASLEEP ON BED, EASILY AWAKEN. A/O X 2-3, ABLE TO MAKE NEEDS KNOWN, ON ROOM AIR, RESPIRATIONS EVEN AND UNLABORED. NO SOB OR S/SX OF DISTRESS NOTED. WITH PATENT IV ACCESS AT LFA G20, INFUSING WELL WITH NS AT 50ML/HR. WITH MYERS CATHETER ATTACHED VIA GRAVITY. NO COMPLAINTS OF PAIN OR ANY DISTRESS AT THIS TIME. DUE MEDS GIVEN. CARE RENDERED AND COMFORTABLE. FALL AND SAFETY PRECAUTIONS PROVIDED: BED AT LOWEST AND LOCKED POSITION, SIDE RAILS UP X 3, BED ALARM ON, CALL LIGHT BUTTON AND TABLE WITHIN REACH. WILL ENDORSE TO NEXT SHIFT FOR FURTHER CARE
--- NOTE | 2025-09-26 07:43 | NUR ---
MS RN OPENING NOTES RECEIVED PATIENT SLEEP ON BED, EASILY AWAKEN WITH NAME. ON ROOM AIR, BREATHING EVEN AND UNLABORED. NO INDICATION OF ACUTE RESPIRATORY DISTRESS NOTED . A/O X 2 BURMESE SPEAKING. WITH PATENT IV ACCESS AT LFA G20, INFUSING WELL WITH NS AT 50ML/HR. VOIDING VIA MYERS CATHETER ATTACHED VIA GRAVITY. ALL FALL AND SAFETY PRECAUTIONS PROVIDED: BED AT LOWEST AND LOCKED POSITION, SIDE RAILS UP X 3, BED ALARM ON, CALL LIGHT BUTTON AND TABLE WITHIN REACH. PLAN OF CARE ONGOING
[2025-09-26 07:49] LABS: CALCIUM, SERUM 8.6 mg/dL (8.5-10.1); CREATININE 1.0 mg/dL (0.6-1.3); SODIUM SERUM 140.0 mmol/L (136-145); UREA NITROGEN, BLOOD 14.0 mg/dL (7-18)
[2025-09-26 08:00] VITALS: BP 137/75; TEMP 98.2; O2SAT 97
[2025-09-26] MEDS: POTASSIUM CHLORIDE 20 MEQ TAB.PRT.SR PO SCH (11:42)
--- NOTE | 2025-09-26 12:55 | NUR ---
MS RN DC NOTE : PT LEFT HOSPITAL VIA GURNEY ACCOMPANIED WITH 2 CHEF PASSENGER VESSEL FROM [facility]. PT WAS IN ROOM AIR, BREATHING EVEN AND UNLABORED. NO INDICATION OF ACUTE RESPIRATORIES DISTRESS NOTED . PT DENIED PAIN. VS OBTAINED WITHIN NORMAL LIMIT PRIOR DC. IV AND NAME BAND REMOVED. PT RECEIVED ALL DUE MEDS BEFORE DC. PT WAS AOX2-3 AND UNABLE TO TAKE PICTURES FROM AFFECTED AREA CAUSE PT WAS TIRED AND ANXIOUS. ALL NURSING EDUCATION PROVIDED TO DAUGHTER ALLEGRA REGARDING SEPSIS, PNA, UTI. DAUGHTER VERBALIZED EDUCATION. PT LEFT UNIT AT 1255 . SANTI [place] MADE AWARE.
[2025-09-30 07:11] LABS: *SPE A/G RATIO 0.9 (0.7-1.7); *SPE ALBUMIN 3.0 g/dL (2.9-4.4); *SPE ALPHA-1-GLOBULIN 0.5 g/dL (0.0-0.4); *SPE ALPHA-2-GLOBULIN 1.1 g/dL (0.4-1.0); *SPE BETA GLOBULIN 1.0 g/dL (0.7-1.3); *SPE GLOBULIN, TOTAL 3.4 g/dL (2.2-3.9); *SPE M-SPIKE Not Observed g/dL (Not Observed); *SPE PROTEIN TOTAL 6.4 g/dL (6.0-8.5); *SPEGAMMA GLOBULIN 0.8 g/dL (0.4-1.8)
== END 2025-09-26 12:55 | disposition home health service (06) | DRG 177 ==
LOC: ER 23:24 → MS IN 09-22 03:03 → TELE 09-22 08:17 → MED 09-24 10:01
PROVIDERS: ATTEND Internal Medicine
DX: J69.0 Pneumonitis due to inhalation of food and vomit (principal); N18.6 End stage renal disease; I13.2 Hypertensive heart and chronic kidney disease with heart failure and with stage 5 chronic kidney disease, or end stage renal disease; G93.40 Encephalopathy, unspecified; T86.12 Kidney transplant failure; L89.156 Pressure-induced deep tissue damage of sacral region; Z94.1 Heart transplant status; N17.9 Acute kidney failure, unspecified; Z99.2 Dependence on renal dialysis; Z79.02 Long term (current) use of antithrombotics/antiplatelets; E11.22 Type 2 diabetes mellitus with diabetic chronic kidney disease; E66.9 Obesity, unspecified; I50.22 Chronic systolic (congestive) heart failure; I25.5 Ischemic cardiomyopathy; Z95.810 Presence of automatic (implantable) cardiac defibrillator; I25.10 Atherosclerotic heart disease of native coronary artery without angina pectoris; Z86.718 Personal history of other venous thrombosis and embolism; Z87.891 Personal history of nicotine dependence; Z79.899 Other long term (current) drug therapy; Z87.440 Personal history of urinary (tract) infections; Z98.61 Coronary angioplasty status; Z88.8 Allergy status to other drugs, medicaments and biological substances; I25.2 Old myocardial infarction; K21.9 Gastro-esophageal reflux disease without esophagitis; E87.6 Hypokalemia; E78.5 Hyperlipidemia, unspecified; N40.0 Benign prostatic hyperplasia without lower urinary tract symptoms; M89.8X9 Other specified disorders of bone, unspecified site; Y84.8 Other medical procedures as the cause of abnormal reaction of the patient, or of later complication, without mention of misadventure at the time of the procedure; Y92.9 Unspecified place or not applicable
CPT/HCPCS: 36415; 71045-TC; 73030-TC; 76770-TC; 80048-TC; 80053-TC; 80076-TC; 80202-TC; 81001; 82550-TC; 82962-TC; 83605-TC; 83735-TC; 83880; 83970; 84100-TC; 84155; 84165; 84443-TC; 85025-TC; 85730-TC; 87040-TC; 87081-TC; 87086-TC; 87186-TC; 92526; 92611; 93307-TC; 97112-TC; 97530-TC; A4223; G0378; J1650; J1815; J2405; J2470; J2543; J2765; J3373; J3374; J7030; J7040; J7060; J7507; J7512; J7517; J8597